=== PATIENT | male | born 1960 | race Caucasian/White ===

== ENCOUNTER 2022-07-07 23:18 | Emergency (ER) | payer MEDICAID ==
[~2022-07-07] VITALS: Ht 165.1 cm; Wt 101.0 kg
[2022-07-07 23:34] VITALS: BP 140/82
[2022-07-08 00:49] LABS: BASOPHILS % 0.9 % (0.0-2.0); EOSINOPHILS % 2.1 % (0.0-5.0); HEMATOCRIT. 44.2 % (42.0-52.0); HEMOGLOBIN. 15.4 g/dL (14.0-18.0); LYMPHOCYTES % 30.4 % (20.0-50.0); MEAN CORPUSCULAR HEMOGLOBIN 31.1 pg (28.0-32.0); MEAN CORPUSCULAR VOLUME 89.4 fL (80.0-94.0); MEAN PLATELET VOLUME 8.2 fl (7.4-10.4); MONOCYTES % 12.1 % (2.0-8.0); NEUTROPHILS % 54.5 % (40.0-76.0); PLATELET 264 x1000/uL (130-400); RED BLOOD CELL COUNT 4.95 mill/uL (4.7-6.1); RED CELL DISTRIBUTION WIDTH 13.2 % (11.6-14.6)
[2022-07-08 01:04] LABS: CHLORIDE 97 mEq/L (98-107)
[2022-07-08] MEDS ORDERED: AMOXICILLIN/POTASSIUM CLAVULANATE 875/125MG TAB PO ONE (02:15)
[2022-07-08] MEDS ORDERED: PREDNISONE 20MG TABLET PO ONE (02:15)
[2022-07-08] MEDS ORDERED: ALBUTEROL (0.083%) 2.5MG/3ML NEB HHN ONE (02:15)
[2022-07-08] MEDS ORDERED: P50 MT (02:23)
[2022-07-08] MEDS ORDERED: AMOX1TAB16 MT (02:23)
[2022-07-08] MEDS ORDERED: ALBU18HF2 IH (02:23)
== END 2022-07-08 04:09 | disposition home or self-care (01) ==
LOC: ER 23:18
DX: J45.901 Unspecified asthma with (acute) exacerbation (principal); R91.8 Other nonspecific abnormal finding of lung field; I10 Essential (primary) hypertension; E78.00 Pure hypercholesterolemia, unspecified
CPT/HCPCS: 36415; 71045; 80053; 84484; 85025; 93005; 94640; 99285; J7512; Z7610

== ENCOUNTER 2022-09-02 11:11 | Emergency (ER) | payer MEDICAID ==
[~2022-09-02] VITALS: Ht 167.6 cm; Wt 104.0 kg
[~2022-09-02 11:11] MED LIST: ALBU18HF2 IH; AMOX1TAB16 MT; P50 MT
[2022-09-02 11:14] VITALS: BP 166/96
[2022-09-02] MEDS ORDERED: IBUPROFEN 600MG TABLET PO STA (15:38)
[2022-09-02] MEDS ORDERED: ALBUTEROL (0.083%) 2.5MG/3ML NEB HHN STA (15:44)
[2022-09-02] MEDS ORDERED: ALBU90AE INH (18:29)
[2022-09-02] MEDS ORDERED: IBUP-2028 MT (18:29)
== END 2022-09-02 19:21 | disposition home or self-care (01) ==
LOC: ER 11:11
DX: R10.12 Left upper quadrant pain (principal); R05.9 Cough, unspecified; K76.0 Fatty (change of) liver, not elsewhere classified; N28.1 Cyst of kidney, acquired; K76.89 Other specified diseases of liver; I10 Essential (primary) hypertension; E78.00 Pure hypercholesterolemia, unspecified
CPT/HCPCS: 71045; 76700; 94640; 99284; Z7610